=== PATIENT | female | born 1970 | race Caucasian/White ===

== ENCOUNTER 2018-01-25 07:01 | Day surgery (SDC) | payer MEDICARE, MEDICAID, SELFPAY ==
[2018-01-25] VITALS (7 sets, daily range): BP systolic 104–118; BP diastolic 64–73; PULSE 86–97; RESP 16–20; TEMP 36–36.6; O2SAT 94–100; BMI 24.9
--- NOTE | 2018-01-25 | IMM_PTH ---
PATIENT: JUSTUS ROBERTS LOC: EN U#:[id number] AGE/SX: 47/F ROOM: RE01/25/[address]: Dr. Yazan Anne MD : 1970 BED: DIS: 01/25/2018 SPEC #: [id number] RECD: 01/26/18 14:49 STATUS: MAITE RESiobhan #: [id number] SUSAN: 01/25/18 00:[address]: Yazan Anne DEPT: IMMUNOHISTOCHEMISTRY RECD BY: Rachelle Rashid ENTERED: 01/26/18 14:50 SP TYPE: IMMUNO OTHR DR: Dr. Holli Cortez MD Tissues: Pylorus Procedures: H Pylori (initial) PHYSICIAN & INSTITUTION [place] [id number] SPECIMEN INFORMATION: Tissue Source: Pyloric stricture biopsy Clinical Info: Dysphagia Specimen Number: [id number] CPT code: 01682 METHODOLOGY: Deparaffinized sections of prefer/formalin-fixed tissue or PAP/DQ stained slides are incubated with monoclonal/polyclonal antibodies/oligonucleotide probes. Localization is made via biotin free immunoperoxidase method. Appropriate controls are performed and reacted as expected. Results on target cell population are indicated in the following table: RESULTS: ANTIBODY / CLONE RESULT H Pylori (polyclonal) negative These tests were developed and their performance characteristics determined by [facility]. They may not have been cleared or approved by the [place]. Food and Drug Administration. The FDA has determined that such clearance or approval is not necessary. INTERPRETATION: Pyloric stricture, biopsy: Negative for Helicobacter pylori organisms. SJ:leslye 01/26/18
--- NOTE | 2018-01-25 08:21 | EGD_PTH ---
PATIENT: JUSTUS ROBERTS LOC: EN U#:[id number] AGE/SX: 47/F ROOM: RE01/25/[address]: Dr. Yazan Anne MD : 1970 BED: DIS: 01/25/2018 SPEC #: [id number] RECD: 01/25/18 13:02 STATUS: MAITE MELONY #: [id number] SUSAN: 01/25/18 08:[address]: Yazan Anne DEPT: SURGICAL PATHOLOGY RECD BY: Beni Mcintosh ENTERED: 01/25/18 13:18 SP TYPE: EGD BIOPSY OTHR DR: Dr. Holli Cortez MD Tissues: Pylorus Procedures: Special Stain Group II Surgery Specimen Level IV Alcian Blue/PAS (control) HEADER OPERATION: EGD with biopsy PRE-OP DIAGNOSIS: Dysphagia TISSUE SUBMITTED: Biopsy pyloric stricture ? also for H. pylori MICROSCOPIC DIAGNOSIS Pyloric stricture, biopsy: Chronic active gastritis. Focal intestinal metaplasia. SJ:leslye 01/26/18 COMMENT The results of immunohistochemistry for Helicobacter pylori will be reported separately ([id number]). Alcian blue/PAS stain with matched control is used in the evaluation of the specimen. MICROSCOPIC DESCRIPTION Slides are reviewed. GROSS DESCRIPTION Received in fixative is one container labeled with the patient's name and designated pyloric stricture biopsy. The specimen consists of multiple irregular fragments of light muhammad soft tissue that in aggregate measure 1 x 0.2 x 0.1 cm. The specimen is totally submitted in one cassette. / PORFIRIO:leslye 01/25/18 TC:2 CPT: 47613, 19539
--- NOTE | 2018-01-25 08:36 | PCM.OP.BLANK ---
Operative Report Date of Procedure: 01/25/18 Preop diagnosis: Dysphagia abnormal esophagram Postop diagnosis: EGD with balloon dilatation of pyloric stricture biopsy of the stricture. Patient with a normal-looking distal esophagus with a small sliding hiatal hernia Anesthesia: Provided the MAC Instrument: Olympus upper endoscope Informed consent was taken prior to procedure. The patient was brought to the endoscopy suite[ she] was placed left shoulder down. Anesthesia provided the MAC. The scope was passed under direct visualization down into the esophagus. Proximal and midesophagus appeared normal scope was easily passed through the GE junction there was a small hiatal hernia. As an ulcer just lateral to the pyloric channel there was no visible bleeding along the channel was stenosed endoscope could not be passed through the channel. Using a CRE balloon size 1011 and 12 noon was placed across the stricture and inflated to 2 radha. The balloon was then increased by 1 radha each time until 6 radha. This point the endoscope could be passed through the stricture the bulbar duodenum was normal the sweep of the duodenum was normal. The scope was withdrawn back into the stomach retroflexion was performed no abnormalities around the cardia. Several biopsies were then taken of the stricture for pathology. The endoscope was withdrawn and the patient tolerated the procedure well. Impression: Dysphagia with abnormal esophagram showing poor emptying and decreased motility and may have some underlying motility disorder or possibly achalasia. Inadvertently the patient was found to have a stricture pyloric channel and this was dilated and biopsied today. Patient also has a gastric ulcer Plan:. Follow-up the biopsies placed the patient on a PPI daily and avoid aspirin and nonsteroidal products arrangements will be made for the patient to have an esophageal manometry
== END 2018-01-25 11:51 | disposition home or self-care (01) ==
LOC: EN 07:06 → AC 07:08
PROVIDERS: Family Provider Internal Medicine; PCP Internal Medicine; Visit Provider Internal Medicine Gastroenterology
PROC: 0DJ08ZZ Inspection of Upper Intestinal Tract, Via Natural or Artificial Opening Endoscopic (ICD-10-PCS; CPT 43235; principal; 2018-01-25 07:55)
DX: K29.50 Unspecified chronic gastritis without bleeding (principal); K31.1 Adult hypertrophic pyloric stenosis; K44.9 Diaphragmatic hernia without obstruction or gangrene; K22.0 Achalasia of cardia; K31.89 Other diseases of stomach and duodenum; R13.10 Dysphagia, unspecified; I27.20 Pulmonary hypertension, unspecified; G40.909 Epilepsy, unspecified, not intractable, without status epilepticus; R63.4 Abnormal weight loss; Z68.25 Body mass index [BMI] 25.0-25.9, adult; G31.84 Mild cognitive impairment of uncertain or unknown etiology; F70 Mild intellectual disabilities; Z98.2 Presence of cerebrospinal fluid drainage device; Z99.81 Dependence on supplemental oxygen; Z79.82 Long term (current) use of aspirin; Z79.899 Other long term (current) drug therapy
CPT/HCPCS: 43239; 43245; 88305; 88313; 88342; J7120